=== PATIENT | female | born 1995 | race Caucasian/White ===

== ENCOUNTER 2021-05-12 07:57 | Inpatient (IN) | payer OTHER ==
[~2021-05-12] VITALS: Ht 157.5 cm; Wt 80.0 kg
--- NOTE | 2021-05-12 08:03 | NUR ---
0803-G1 [address] Syed to unit with complaint of SROM at 0500 with clear fluid. Reports mild cramping no contractions since SROM. Reports good FM. Assisted into gown and placed on EFM. BP 130/65 maternal HR 75bpm. Amnitest +, SVE /-2. Assessment complete.
[2021-05-12 08:30] VITALS: BP 130/65; PULSE 75; TEMP 98.1
[2021-05-12] MEDS ORDERED: PROCARDIA XL 6060 MG PO (08:34)
[2021-05-12 09:00] VITALS: BP 124/79; PULSE 81
--- NOTE | 2021-05-12 09:18 | NUR ---
0918-IV to right wrist, blood collected and sent to lab per order. 0931-LR and Ampicillian infusing per MD order see EMAR. 0945-Dr. Baptiste to patient room. Bedside sono by . Order for IM betamethasone recieved.
[2021-05-12 09:29] LABS: BASO % 0.3 % (0.0-2.0); EOS % 0.1 % (0.0-4.0); GRAN # 9.5 K/mm3 (1.4-6.5); GRAN % 84.6 % (42.2-75.2); HEMOGLOBIN 11.6 g/dl (12.5-16.0); LYMPH # 0.8 K/mm3 (1.2-3.4); LYMPH % 7.5 % (20.0-51.0); MEAN CELL VOLUME 87 fl (80.0-100.0); MEAN CORPUSCULAR HEMOGLOBIN 30 pg (27-31); MEAN CORPUSCULAR HGB CONC 35 g/dl (33.0-37.0); MEAN PLATELET VOLUME 11.2 fl (7.4-10.4); MONO # 0.8 K/mm3 (0.1-0.6); MONO % 6.9 % (1.7-9.3); PLATELET COUNT 268 K/mm3 (130-400); RED BLOOD COUNT 3.84 M/mm3 (4.10-5.30); REDCELL DISTRIBUTION WIDTH-CV 12.5 % (11.5-14.5)
[2021-05-12 09:30] VITALS: BP 122/78; PULSE 81
[2021-05-12 09:30] LABS: HEMATOCRIT 33.2 % (37.0-47.0)
[2021-05-12 09:40] LABS: TRICYCLIC ANTIDEPRESS URINE NEGATIVE
[2021-05-12 10:00] VITALS: BP 126/6; PULSE 82
--- NOTE | 2021-05-12 10:15 | NUR ---
Dr. Baptiste to patient room to discuss plan for transfer of care to [facility].
[2021-05-12 10:30] VITALS: BP 125/76; PULSE 76
[2021-05-12 10:42] VITALS: BP 132/81; PULSE 82
--- NOTE | 2021-05-12 10:42 | NUR ---
1042EMS on unit for transport. EFM off. Pt assisted to EMS stretcher. Report given. 1048Pt off unit via stretcher in care of EMS to trasport to [facility]. 1055Report to receiving RN at [facility] triage by Jose Tate RN.
== END 2021-05-12 10:48 | disposition short-term general hospital (02) | DRG 832 ==
LOC: LDRO 07:57 → LDR 09:11
PROVIDERS: ADMIT Obstetrics & Gynecology
DX: O42.913 Preterm premature rupture of membranes, unspecified as to length of time between rupture and onset of labor, third trimester (principal); O10.913 Unspecified pre-existing hypertension complicating pregnancy, third trimester; Z3A.35 35 weeks gestation of pregnancy
CPT/HCPCS: J0290; J0702; J7120